=== PATIENT | male | born 1990 | race Two or more races ===

== ENCOUNTER 2018-08-29 15:57 | Emergency (ER) | payer MEDICAID ==
[~2018-08-29] VITALS: Ht 182.9 cm; Wt 78.0 kg
[2018-08-29 16:51] LABS: CLARITY,URINE CLEAR (Clear); COLOR,URINE YELLOW (Yellow); GLUCOSE, URINE NEGATIVE (Neg); KETONES,URINE NEGATIVE (Neg); LEUKOCYTE ESTERASE ,URINE MODERATE (Neg); NITRITES, URINE NEGATIVE (Neg); OCCULT BLOOD,URINE NEGATIVE (Neg); PROTEIN,URINE NEGATIVE (Neg); UROBILINOGEN,URINE 0.2 E.U/dL (0.2-1.0)
[2018-08-29 16:59] LABS: UA COLLECTION TYPE CLN CATCH MIDSTREAM
[2018-08-29 17:02] LABS: MUCUS STRANDS FEW /LPF (Neg); SQUAMOUS EPITHELIAL CELL,UR FEW /LPF (FEW)
[2018-08-29 17:03] LABS: WBC,URINE 20-30 /HPF (0-4)
[2018-08-29 17:05] LABS: RBC,URINE 0-2 /HPF (0-2); WBC CLUMPS,URINE FEW /HPF (NEGATIVE)
[2018-08-29 17:08] LABS: BACTERIA,URINE NONE SEEN /HPF (Neg)
--- NOTE | 2018-08-29 17:25 | NUR ---
Called patient regarding patient not being in lobby and PA's concern regarding need to admission with no answer. Will call patient after third call and patient not being in lobby.
[2018-08-29] MEDS ORDERED: acetaminophen 325mg tablet PO ONE (18:00)
[2018-08-29] MEDS ORDERED: piperacillin/tazo 4.5gm/100ml 100 ML IV ONE (18:00)
[2018-08-29] MEDS ORDERED: normal saline 1000ML IV soln IVB ONE ×2 (18:00)
[2018-08-29] MEDS ORDERED: vancomycin/NS 1 GM ADD-VANTAGE 250 ML X 1 DOSE IV ONE (18:10)
[2018-08-29 18:21] LABS: BASOPHILS # (AUTO) 0.1 X10'3 (0-0.2); BASOPHILS % (AUTO) 1.1 % (0-1); EOSINOPHILS % (AUTO) 0 % (0-6); HEMATOCRIT 36.5 % (42.0-52.0); HEMOGLOBIN 12.2 g/dl (14.0-17.9); LYMPHOCYTES % (AUTO) 15.2 % (21-51); MEAN CORPUSCULAR HEMOGLOBIN 28.8 PG (27.0-31.0); MEAN CORPUSCULAR HGB CONC 33.3 g/dL (33.0-36.5); MEAN CORPUSCULAR VOLUME 86.5 FL (78-98); MONOCYTES # (AUTO) 0.9 X10'3 (0-0.9); NEUTROPHILS # (AUTO) 10.1 X10'3 (1.8-7.7); NEUTROPHILS % (AUTO) 76.7 % (42-75); PLATELET COUNT 259 X10'3 (140-440); RED BLOOD COUNT 4.22 X10'6 (4.70-6.10); RED CELL DISTRIBUTION WIDTH 14.7 % (11.5-14.5); WHITE BLOOD COUNT 13.1 X10'3 (4.5-11.0)
[2018-08-29 18:49] LABS: ALANINE AMINOTRANSFERASE 61 U/L (12-78); ALBUMIN 3.9 G/DL (3.4-5.0); ALBUMIN/GLOBULIN RATIO 0.9 (1.1-1.5); ALKALINE PHOSPHATASE 100 IU/L (46-116); ANION GAP 5 (8-16); ASPARTATE AMINO TRANSFERASE 47 U/L (10-37); BILIRUBIN,TOTAL 0.8 MG/DL (0.1-1.0); BLOOD UREA NITROGEN 11 MG/DL (7-18); BUN/CREATININE RATIO 11.6 (5.4-32.0); CALCIUM 8.9 MG/DL (8.5-10.1); CHLORIDE 99 MMOL/L (99-107); CREATININE 0.95 MG/DL (0.60-1.10); GLUCOSE 106 MG/DL (70-104); POTASSIUM 3.4 MMOL/L (3.5-5.1); SODIUM 134 MMOL/L (135-145); TOTAL CARBON DIOXIDE 30.4 MMOL/L (24-32); TOTAL PROTEIN 8.1 G/DL (6.4-8.2); eGFR > 90 ML/MIN
[2018-08-29 18:50] LABS: INR 1.1 INR; PROTHROMBIN TIME 10.8 SECONDS (9.0-12.0)
[2018-08-29 18:51] LABS: PARTIAL THROMBOPLASTIN TIME 29 SECONDS (22-32)
[2018-08-29 19:08] VITALS: BP 106/63
--- NOTE | 2018-08-29 20:26 | NUR ---
PT VERY AGITATED AND JITTERY, BUT COOPERATIVE. PT ADMITED TO SMOKING METH AND HEROINE EARLIER TODAY BEFORE COMING TO THE ER. PT STATES HE DOES NOT TAKE ANY PRESCRIPTION MEDICATIONS.
[2018-08-29 20:44] LABS: URINE AMPHETAMINE SCREEN POSITIVE (Neg); URINE BARBITUATE SCREEN NEGATIVE (Neg); URINE BENZODIAZEPINES SCREEN NEGATIVE (Neg); URINE CANNABINOID SCREEN NEGATIVE (Neg); URINE COCAINE SCREEN NEGATIVE (Neg); URINE METHADONE SCREEN NEGATIVE (Neg); URINE OPIATE SCREEN POSITIVE (Neg); URINE PHENCYCLIDINE SCREEN NEGATIVE (Neg)
[2018-08-29] MEDS ORDERED: LORazepam 1 MG tablet PO ONE (21:35)
--- NOTE | 2018-08-29 21:45 | NUR ---
PT LEFT AMA SOMETIME AFTER 2100. PT TOOK ALL HIS BELONGINGS. IV PUMP WAS RUNNING , BUT LUER LOCK HAD BEEN REMOVED FROM IV CANNULA. UNKNOWN IF PT STILL HAS IV IN PLACE, CANNULA NOT SEEN ANYWHERE IN ROOM.
[2018-08-30] MEDS ORDERED: vancomycin/NS 1 GM ADD-VANTAGE 250 ML IV SCH
== END 2018-08-29 22:35 | disposition left against medical advice (07) ==
LOC: ER 15:58
DX: L03.113 Cellulitis of right upper limb (principal); A41.9 Sepsis, unspecified organism; F17.200 Nicotine dependence, unspecified, uncomplicated; F15.90 Other stimulant use, unspecified, uncomplicated; F14.90 Cocaine use, unspecified, uncomplicated; Z60.2 Problems related to living alone; Z59.0 Homelessness; Z56.0 Unemployment, unspecified
CPT/HCPCS: 36415; 71045; 73120; 80053; 80305; 81001; 83605; 84145; 85025; 85610; 85730; 87040; 87077; 87088; 87185; 96365; 99284; J2543; J7030

== ENCOUNTER 2018-09-11 15:06 | Emergency (ER) | payer MEDICAID ==
[~2018-09-11] VITALS: Ht 182.9 cm; Wt 80.0 kg
[2018-09-11 15:13] VITALS: BP 138/83
[2018-09-11] MEDS ORDERED: SULF1TAB49 PO (15:32)
== END 2018-09-11 15:47 | disposition home or self-care (01) ==
LOC: ER 15:07
DX: L03.113 Cellulitis of right upper limb (principal); F15.90 Other stimulant use, unspecified, uncomplicated; F11.90 Opioid use, unspecified, uncomplicated; Z56.0 Unemployment, unspecified; Z59.0 Homelessness
CPT/HCPCS: 99283